=== PATIENT | male | born 1980 | race Caucasian/White ===

== ENCOUNTER 2018-10-08 16:00 | Emergency (ER) | payer OTHER ==
[~2018-10-08] VITALS: Ht 177.8 cm; Wt 97.7 kg
[2018-10-08 16:08] VITALS: Ht 177.8 cm; Wt 97.7 kg
[2018-10-08 18:47] VITALS: BP 150/91; PULSE 89; RESP 16
== END 2018-10-08 18:47 | disposition home or self-care (01) ==
LOC: E/R 16:00
DX: F10.921 Alcohol use, unspecified with intoxication delirium (principal)
CPT/HCPCS: 36415; 70450; 80053; 80307; 85025